=== PATIENT | female | born 1995 | race Two or more races ===

== ENCOUNTER 2024-11-22 11:03 | Emergency (ER) | payer BC ==
[~2024-11-22] VITALS: Ht 172.7 cm; Wt 104.3 kg
[2024-11-22] MEDS ORDERED: PRENATABS RX T1 EACH PO (11:06)
[2024-11-22 11:38] LABS: HEMOGLOBIN 11.7 g/dL (12.0-15.00); MEAN CELL VOLUME 85.4 fL (80.00-100.00); MEAN CORPUSCULAR HEMOGLOBIN 29.4 pg (27.00-32.0); MEAN CORPUSCULAR HGB CONC 34.4 g/dl (32.0-36.0); PLATELET COUNT 251 K/uL (150-450); RED BLOOD COUNT 3.99 M/uL (4.00-6.00); RED CELL DISTRIBUTION WIDTH 14.9 % (11.5-14.5)
[2024-11-22 11:45] LABS: PH,URINE 7.5 (5.0-8.0); URINE APPEARANCE Clear; URINE BILIRRUBIN Negative (NEGATIVE); URINE BLOOD Large; URINE COLOR Yellow; URINE GLUCOSE Negative (NEGATIVE); URINE KETONE Negative (NEGATIVE); URINE LEUKOCYTE Trace; URINE NITRATE Negative; URINE PROTEIN 30 (NEGATIVE)
[2024-11-22 11:53] LABS: URINE BACTERIA 1092.9 uL (0.0-1933); URINE EPITHELIAL CELLS 42.8 uL (0.0-38.8); URINE RBC 93.2 uL (0.0-20.8); URINE WBC 17.2 uL (0.0-23.2)
[2024-11-22] MEDS ORDERED: BACTRIM DS TAB1 EACH PO (13:35)
[2024-11-22] MEDS ORDERED: PEPCID AC20 MG PO (13:35)
== END 2024-11-22 14:00 | disposition home or self-care (01) ==
LOC: ER 11:05
PROVIDERS: General Practice
DX: O20.8 Other hemorrhage in early pregnancy (principal); Z3A.01 Less than 8 weeks gestation of pregnancy; N93.9 Abnormal uterine and vaginal bleeding, unspecified